=== PATIENT | male | born 1985 | race Caucasian/White ===

== ENCOUNTER 2020-12-09 22:55 | Emergency (ER) | payer MEDICAID ==
[~2020-12-09] VITALS: Ht 175.3 cm; Wt 87.1 kg
[2020-12-09 23:00] VITALS: Ht 175.3 cm; Wt 87.1 kg
[2020-12-09 23:44] VITALS: BP 129/81
== END 2020-12-09 23:44 | disposition home or self-care (01) ==
LOC: ED 22:55
DX: J02.0 Streptococcal pharyngitis (principal); Z20.828 Contact with and (suspected) exposure to other viral communicable diseases
CPT/HCPCS: J1100; U0003